=== PATIENT | male | born 1990 | race Caucasian/White ===

== ENCOUNTER 2024-06-01 16:58 | Emergency (ER) | payer BC ==
[~2024-06-01] VITALS: Ht 177.8 cm; Wt 90.7 kg
[2024-06-01 17:03] VITALS: O2SAT 97
[2024-06-01] MEDS ORDERED: QUET25TA PO (17:11)
[2024-06-01] MEDS ORDERED: BUPR1FIL7 SL (17:11)
== END 2024-06-01 17:52 | disposition home or self-care (01) ==
LOC: ER 16:58
DX: S46.911A Strain of unspecified muscle, fascia and tendon at shoulder and upper arm level, right arm, initial encounter (principal); R20.2 Paresthesia of skin; F19.10 Other psychoactive substance abuse, uncomplicated; X58.XXXA Exposure to other specified factors, initial encounter; Y93.89 Activity, other specified; Y92.89 Other specified places as the place of occurrence of the external cause; Y99.8 Other external cause status
CPT/HCPCS: A4606; A4663

== ENCOUNTER 2024-06-29 10:39 | Emergency (ER) | payer BC, MEDICAID ==
[~2024-06-29] VITALS: Ht 177.8 cm; Wt 90.7 kg
[~2024-06-29 10:39] MED LIST: BUPR1FIL7 SL; QUET25TA PO
[2024-06-29] MEDS ORDERED: CEFD300C3 PO (11:10)
[2024-06-29] MEDS ORDERED: SULF1TAB48 PO (11:10)
[2024-06-29 11:14] VITALS: BP 114/65; O2SAT 97
== END 2024-06-29 11:15 | disposition home or self-care (01) ==
LOC: ER 10:39
DX: L03.311 Cellulitis of abdominal wall (principal); F11.20 Opioid dependence, uncomplicated; Z79.899 Other long term (current) drug therapy
CPT/HCPCS: A4606; A4663